=== PATIENT | male | born 1955 | race Caucasian/White ===

== ENCOUNTER 2017-08-21 22:55 | Emergency (ER) | payer BC ==
[2017-08-21] MEDS ORDERED: ONDANSETRON ODT 4 MG TAB PO STA (23:09)
[2017-08-21] MEDS ORDERED: IBUPROFEN 600 MG TAB PO STA (23:25)
[2017-08-21] MEDS ORDERED: ACETAMINOPHEN TAB 500 MG TAB PO STA (23:25)
--- NOTE | 2017-08-21 23:50 | ED ---
URI HPI - General Chief Complaint: Upper Respiratory Infection Stated Complaint: Aches/Flu Symptoms Time Seen by Provider: 08/21/17 23:09 Source: patient, RN notes reviewed Mode of arrival: ambulatory Limitations: no limitations - History of Present Illness Initial Comments: Is a 61-year-old male presents emergency Department chief complaint of cough congestion bodyaches and fever. Patient states symptoms started on Saturday. He shouldn't has not taken any recent Tylenol Motrin. Patient states he is slightly nauseated has had no abdominal discomfort diarrhea or constipation which she's. Patient denies any dysuria or hematuria. Patient denies any known sick contacts. Patient's cough is nonproductive he also complains of mild runny nose. Denies sore throat, ear pain. - Related Data Home Medications Medication Instructions Recorded Confirmed No Known Home Medications [No 08/21/17 08/21/17 Known Home Medications] Allergies Allergy/AdvReac Type Severity Reaction Status Date / Time No Known Allergies Allergy Verified 08/21/17 23:11 Review of Systems ROS Statement: Those systems with pertinent positive or pertinent negative responses have been documented in the HPI. ROS Other: All systems not noted in ROS Statement are negative. Past Medical History Past Medical History: Hypertension History of Any Multi-Drug Resistant Organisms: None Reported Past Surgical History: Appendectomy, Hernia Repair, Orthopedic Surgery Additional Past Surgical History / Comment(s): penile implant Past Psychological History: No Psychological Hx Reported Smoking Status: Former smoker Past Alcohol Use History: Occasional Past Drug Use History: None Reported General Exam Limitations: no limitations General appearance: alert, in no apparent distress Head exam: Present: atraumatic, normocephalic, normal inspection Eye exam: Present: normal appearance, PERRL, EOMI. Absent: scleral icterus, conjunctival injection, periorbital swelling ENT exam: Present: normal exam, normal oropharynx, mucous membranes moist, TM's normal bilaterally, normal external ear exam Neck exam: Present: normal inspection, full ROM. Absent: tenderness, meningismus, lymphadenopathy Respiratory exam: Present: normal lung sounds bilaterally. Absent: respiratory distress, wheezes, rales, rhonchi, stridor Cardiovascular Exam: Present: normal rhythm, tachycardia, normal heart sounds. Absent: systolic murmur, diastolic murmur, rubs, gallop, clicks GI/Abdominal exam: Present: soft, normal bowel sounds. Absent: distended, tenderness, guarding, rebound, rigid Neurological exam: Present: alert Skin exam: Present: warm, dry, intact, normal color. Absent: rash Course Vital Signs 08/21/17 22:58 Temperature 102.1 F H Pulse Rate 107 H Respiratory 16 Rate Blood Pressure 150/76 O2 Sat by Pulse 95 Oximetry Medical Decision Making - Medical Decision Making 61-year-old male presented for fever cough bodyaches. Patient's chest x-ray reviewed no acute abnormality no evidence of infiltrate. Patient did have a fever noted here was given Tylenol Motrin patient is influenza B-positive. Patient be discharged advised increased fluids take Tylenol Motrin return for any worsening symptoms. - Lab Data Lab Results 08/21/17 Range/Units 23:00 Influenza Type A RNA Not Detected (Not Detectd) Influenza Type B (PCR) Detected H (Not Detectd) Disposition Clinical Impression: Influenza B Disposition: HOME SELF-CARE Condition: Stable Instructions: Influenza (ED) Additional Instructions: Please return to the Emergency Department if symptoms worsen or any other concerns. Referrals: Efrem Waldrop DO [Primary Care Provider] - 1-2 days Time of Disposition: 23:56
--- NOTE | 2017-08-21 23:53 | XR ---
EXAMINATION TYPE: XR chest 2V DATE OF EXAM: 08/21/2017 COMPARISON: NONE HISTORY: Fever TECHNIQUE: Frontal and lateral views of the chest are obtained. FINDINGS: Heart and mediastinum are within normal limits. Lungs are clear of consolidation. There is no heart failure. There is no pleural effusion. Bony thorax is intact. There is minimal pleural thic kening at the left lung apex. IMPRESSION: No active cardiopulmonary disease. Normal heart.
[2017-08-21] MEDS ORDERED: ONDANSETRON 4 MG ODT STARTER PACK 2 TAB BTL PO STA (23:56)
[2017-08-22 00:11] VITALS: BP 122/72; PULSE 92; RESP 18; TEMP 102
== END 2017-08-22 00:10 | disposition home or self-care (01) ==
LOC: EC 22:55
DX: J10.1 Influenza due to other identified influenza virus with other respiratory manifestations (principal); Z87.891 Personal history of nicotine dependence
CPT/HCPCS: 87502; 71046; 99283; S0119

== ENCOUNTER 2018-12-28 21:16 | Emergency (ER) | payer BC ==
--- NOTE | 2018-12-28 22:02 | XR ---
EXAMINATION TYPE: XR hand complete RT DATE OF EXAM: 12/28/2018 CLINICAL HISTORY: Jamming injury with pain. TECHNIQUE: Frontal, lateral and oblique images of the right hand are obtained. COMPARISON: None. FINDINGS: Incomplete extension of phalanges noted. There is no acute fracture/dislocation evident in the right hand with particular attention to fourth and fifth fingers that area of clinical concern. M ild joint space narrowing throughout the fingers is present. The overlying soft tissue appears unrema rkable. IMPRESSION: There is no acute fracture or dislocation in the right hand.
--- NOTE | 2018-12-28 22:07 | ED ---
Upper Extremity HPI - General Chief Complaint: Extremity Injury, Upper Stated Complaint: Swollen hand Time Seen by Provider: 12/28/18 21:31 Source: patient Mode of arrival: ambulatory Limitations: no limitations - History of Present Illness Initial Comments: Is a 63-year-old male presents the emergency department for evaluation of swelling of his right fourth and fifth digit. Patient reports yesterday he was working with power tools when the drill moved and his hand was bent in an awkward position. Patient reports he felt immediate pain in his fingers but didn't notice any obvious deformity. He reports that over the course of the day his hand is become more swollen and painful and he is concerned there may be a fracture dislocation which prompted him to come to the ER for evaluation. - Related Data Home Medications Medication Instructions Recorded Confirmed Atorvastatin [Lipitor] 20 mg PO DAILY 12/28/18 12/28/18 Lisinopril-Hctz 20-12.5 mg 1 tab PO DAILY 12/28/18 12/28/18 [Zestoretic 20-12.5] Allergies Allergy/AdvReac Type Severity Reaction Status Date / Time No Known Allergies Allergy Verified 12/28/18 21:56 Review of Systems ROS Statement: Those systems with pertinent positive or pertinent negative responses have been documented in the HPI. ROS Other: All systems not noted in ROS Statement are negative. Past Medical History Past Medical History: Hypertension History of Any Multi-Drug Resistant Organisms: None Reported Past Surgical History: Appendectomy, Hernia Repair, Orthopedic Surgery Additional Past Surgical History / Comment(s): penile implant Past Psychological History: No Psychological Hx Reported Smoking Status: Former smoker Past Alcohol Use History: Occasional Past Drug Use History: None Reported General Exam - General Exam Comments Initial Comments: Physical Exam GENERAL: Patient is well-developed and well-nourished. Patient is nontoxic and well-hydrated and is in no distress. HENT: Normocephalic, Atraumatic. EYES: PERRL, EOMI PULMONARY: Unlabored respirations. CARDIOVASCULAR: There is a regular rate and rhythm without any murmurs gallops or rubs. ABDOMEN: Non-distended SKIN: Skin is clear with no lesions or rashes and otherwise unremarkable. : Deferred NEUROLOGIC: Patient is alert and oriented x3. Moving all extremities spontaneously MUSCULOSKELETAL: Right hand with swelling of fourth and fifth digit, there is ecchymosis noted on the palmar surface at the joints. Patient has full range of motion at the MCP joint, pain with range of motion of PIP joints. Swelling is most prominent around the PIP joints. Patient is able to flex and extend the fingers against resistance however this is painful. PSYCHIATRIC: Normal psychiatric evaluation. Limitations: no limitations Course Vital Signs 12/28/18 21:19 Temperature 98.4 F Pulse Rate 82 Respiratory 18 Rate Blood Pressure 135/86 O2 Sat by Pulse 96 Oximetry Medical Decision Making - Medical Decision Making The patient was seen and evaluated, history was obtained from the patient concerned that he may have dislocated his fingers and then relocated them. He's had progressively worsening pain and swelling Physical exam reveals bruised and swollen PIP joints on the fourth and fifth finger. However patient does have range of motion which is limited only by swelling and pain, he is able to flex and extend the fingers against resistance. There is no obvious sign of tendon injury on physical exam. X-ray revealed no acute fracture dislocation, these results were discussed with patient expresses relief. I offered to splint the patient for comfort however patient would prefer just to keep the hand in a position of comfort. Patient states he will follow-up with hand surgeon this week for reevaluation. Disposition Clinical Impression: Finger sprain Disposition: HOME SELF-CARE Condition: Stable Instructions (If sedation given, give patient instructions): Hand Sprain (ED) Is patient prescribed a controlled substance at d/c from ED?: No Referrals: Nonstaff,Physician [Primary Care Provider] - 1-2 days Mike Ramirez DO [Medical Doctor] - 1-2 days Claudio Bates DO [Doctor of Osteopathic Medicine] - 1-2 days
[2018-12-28 22:36] VITALS: BP 132/76; PULSE 79; RESP 17; TEMP 98.5
--- NOTE | 2018-12-30 04:32 | CDI ---
Documentation Clarification OP Dear Evie SANFORD, DO Please provide specific finger sprain location. Thank you, Tera Nevarez Kitchen Assistant If you have any questions, please contact Director Regulatory Agency at [phone] [facility]
== END 2018-12-28 22:36 | disposition home or self-care (01) ==
LOC: EC 21:16
DX: S63.616A Unspecified sprain of right little finger, initial encounter (principal); S60.041A Contusion of right ring finger without damage to nail, initial encounter; I10 Essential (primary) hypertension; Z87.891 Personal history of nicotine dependence; Z79.899 Other long term (current) drug therapy; W29.8XXA Contact with other powered hand tools and household machinery, initial encounter; Y93.89 Activity, other specified
CPT/HCPCS: 99283